=== PATIENT | female | born 1945 | race African-American/Black ===

== ENCOUNTER 2019-02-07 09:52 | Day surgery (SDC) | payer OTHER ==
[2019-02-03 11:44] VITALS: BMI 25.2
[2019-02-07] MEDS ORDERED: MIDAZOLAM HCL 2 MG/2 ML SINGLE DOSE VIAL ONE (11:39)
[2019-02-07] MEDS ORDERED: PROPOFOL 20 ML ONE (11:41)
[2019-02-07] MEDS ORDERED: ONDANSETRON 4 MG/2 ML VIAL ONE ×2 (11:41→14:16)
[2019-02-07] MEDS ORDERED: KETOROLAC TROMETHAMINE 30 MG/1 ML VIAL ONE (11:41)
[2019-02-07] MEDS ORDERED: DEXAMETHASONE SOD PHOSPHATE 4 MG/1 ML VIAL ONE (11:41)
[2019-02-07] MEDS ORDERED: LIDOCAINE HCL/PF 2% SDV 5ML VIAL ONE (11:41)
[2019-02-07] MEDS ORDERED: BUPIVACAINE HCL/PF 0.5% (5MG/ML) 10 ML VIAL ONE (11:49)
[2019-02-07] MEDS ORDERED: MORPHINE SULFATE 10 MG/1 ML *VIAL ONE (12:14)
[2019-02-07] MEDS ORDERED: ONDANSETRON 4 MG/2 ML VIAL IVPUSH PRN (12:20)
[2019-02-07] MEDS ORDERED: LACTATED RINGERS SOLUTION 1,000 ML IV SCH (12:30)
[2019-02-07] MEDS ORDERED: ceFAZolin SODIUM 1 GM VIAL ONE (13:11)
[2019-02-07] MEDS ORDERED: BUPIVACAINE HCL/PF (5 MG/ML) 30 ML VIAL IJ ONE ×2 (13:30→13:40)
[2019-02-07] MEDS ORDERED: oxyCODONE HCL 5 MG TABLET PO PRN ×2 (14:12)
[2019-02-07 15:12] VITALS: TEMP 97.8
[2019-02-07 16:01] VITALS: BP 116/70; PULSE 67
--- NOTE | 2019-02-08 07:51 | OP ---
DATE OF OPERATION: 02/07/2019 DESCRIPTION OF PROCEDURE: Following introduction of the arthroscope and the arthroscopic instruments to the medial and lateral portals, the knee was examined. 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 Medial and lateral gutters were without plica and loose body. Anterior articular surface of the patella had damage consistent with chondromalacia, although no loss of integrity to the articular surface was identified. The patient had from this work-related accident a patellar fracture, but no clear fissuring was seen with smoothness to the articular surface with mild chondromalacia changes. Medial meniscus was evaluated. There was noted to be tearing of the posterior horn, which was resected with a shaver and radiofrequency wand. Intercondylar region was noted to have joint debris, and a joint debridement was performed. The knee anterior cruciate ligament was identified. Lateral meniscus was found to have tear of the anterior and posterior horns, and this was resected using shaver, radiofrequency wand, and biters with appropriate angle and shape. The knee joint was then copiously irrigated with sterile saline irrigant. The wounds were closed using 4-0 undyed Vicryl followed by Steri-Strips, Xeroform, 4x4s, Combine, sterile Webril, ARABELLA bandage, knee immobilizer. The patient was then gently awoken from anesthesia without incident, transferred from the operating room to the recovery room in satisfactory condition. There were no intraoperative complications. Tourniquet was deflated after approximately 20 minutes of tourniquet time. Radhames [id number]
--- NOTE | 2019-02-11 13:03 | OP ---
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 POSTOPERATIVE DIAGNOSIS: Torn medial and lateral meniscus to the right knee with chondromalacia, hypertrophic synovium, and joint debris. PROCEDURE PERFORMED: Operative arthroscopy of the right knee with partial medial and lateral meniscectomy, chondroplasty, synovectomy, joint debridement. SURGEON: Rosa Maria Henderson MD WAITSTAFF: Johny Dodd. ANESTHESIA: Dr. Baer. ANESTHESIA: General anesthesia. DESCRIPTION OF PROCEDURE: The patient consisted of the patient being brought into the operating room, gently transferred from the stretcher to the OR table with all bony prominences well padded. The right leg was prepped and draped in a sterile fashion. The patient was given intravenous antibiotics and copious irrigation throughout the procedure to minimize risk of infection and bleeding. A complete risk, benefit, alternative discussion was conducted with the patient, which was inclusive of, but not limited to, infection, bleeding, , paralysis, increased pain, need for repeat surgery. The patient asked questions about the procedure and decided to proceed with surgical treatment. An appropriate time-out was conducted, which was inclusive of, but not limited to, type of surgery, surgical site, anesthesia, anesthesiologist. The initial marker was identified prior to proceeding with the surgery at the appropriate surgical site. Following this, the patient was given sterile preparation and draping of the right knee. Following this, a tourniquet had been applied, and the leg was exsanguinated using rubber Esmarch bandage. Tourniquet inflated to 325 mmHg. Following introduction of the arthroscope and the arthroscopic instruments to the medial and lateral portals, the knee was examined. 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 Medial and lateral gutters were without plica and loose body. Anterior articular surface of the patella had damage consistent with chondromalacia, although no loss of integrity to the articular surface was identified. The patient had from this work-related accident a patellar fracture, but no clear fissuring was seen with smoothness to the articular surface with mild chondromalacia changes. Medial meniscus was evaluated. There was noted to be tearing of the posterior horn, which was resected with a shaver and radiofrequency wand. Intercondylar region was noted to have joint debris, and a joint debridement was performed. The knee anterior cruciate ligament was identified. Lateral meniscus was found to have tear of the anterior and posterior horns, and this was resected using shaver, radiofrequency wand, and biters with appropriate angle and shape. The knee joint was then copiously irrigated with sterile saline irrigant. The wounds were closed using 4-0 undyed Vicryl followed by Steri-Strips, Xeroform, 4x4s, Combine, sterile Webril, ARABELLA bandage, knee immobilizer. The patient was then gently awoken from anesthesia without incident, transferred from the operating room to the recovery room in satisfactory condition. There were no intraoperative complications. Tourniquet was deflated after approximately 20 minutes of tourniquet time. ROSA MARIA HENDERSON M.D. [id number]
== END 2019-02-07 16:01 | disposition home or self-care (01) ==
LOC: FASU 09:52
PROVIDERS: ATTEND Orthopaedic Surgery
PROC: 0SBC4ZZ Excision of Right Knee Joint, Percutaneous Endoscopic Approach (ICD-10-PCS; 2019-02-07)
PROC: 0SBC4ZZ Excision of Right Knee Joint, Percutaneous Endoscopic Approach (ICD-10-PCS; 2019-02-07)
PROC: 0SBC4ZZ Excision of Right Knee Joint, Percutaneous Endoscopic Approach (ICD-10-PCS; principal; 2019-02-07 11:15)
DX: S83.281A Other tear of lateral meniscus, current injury, right knee, initial encounter (principal); S83.241A Other tear of medial meniscus, current injury, right knee, initial encounter; M22.41 Chondromalacia patellae, right knee; M67.261 Synovial hypertrophy, not elsewhere classified, right lower leg; X58.XXXA Exposure to other specified factors, initial encounter; Y93.9 Activity, unspecified; Y92.9 Unspecified place or not applicable
CPT/HCPCS: 94760